=== PATIENT | female | born 2005 | race Caucasian/White ===

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

== ENCOUNTER 2025-01-28 07:57 | Day surgery (SDC) | payer OTHER, SELFPAY ==
[2025-01-28] VITALS (8 sets, daily range): BP systolic 86–111; BP diastolic 50–77; PULSE 66–85; RESP 14–16; TEMP 35.9–36.8; O2SAT 93–99; BMI 26.2
--- NOTE | 2025-01-28 08:28 | PRE.ANES_ITS ---
ASA Classification* ASA Classification ASA Classification: 2 Assessment & Plan Anesthesia* Anesthesia Assessment Anesthesia Assessment: Discussed sedation and/or anesthesia options, risks, benefits, and alternatives with patient/parents/legal guardian/POA. Questions invited. The patient/parents/legal guardian/POA seems to understand and agrees to proceed with anesthesia plan. Reviewed the physical assessment, medical history, allergy history and patient home medications list prior to surgery/procedure/anesthetic and documented any changes. Performed airway and anesthesia risk assessments. Anesthesia Type Anesthesia Type: MAC Anesthesia Focused Assessment* Airway Assessment Mouth opens: >3 cm Mallampati Score: II Labs Anesthesia Preop lab: CBC WBC 6.8 K/mm3 (4.5-13.0) 07/04/22 20:12 07/04/22 RBC 4.27 M/mm3 (4.1-4.8) 07/04/22 20:12 07/04/22 Hgb 12.6 g/dL (12.0-15.0) 07/04/22 20:12 07/04/22 Hct 38.2 % (37-46) 07/04/22 20:12 07/04/22 Plt Count 249 K/mm3 (150-450) 07/04/22 20:12 07/04/22 CHEMISTRY Potassium 4.2 mmol/L (3.5-5.1) 07/04/22 20:12 07/04/22 Sodium 139 mmol/L (136-145) 07/04/22 20:12 07/04/22 BUN 8 mg/dL (7-18) 07/04/22 20:12 07/04/22 Creatinine 0.68 mg/dL (0.55-1.02) 07/04/22 20:12 07/04/22 Glucose 94 mg/dL (74-106) 07/04/22 20:12 07/04/22 COAG Urine Test Negative Negative 09/11/17 00:20 09/11/17 Pre-Assessment Diagnosis/Proposed Procedure Planned Operative Procedure(s): Cysto, possible bladder biopsy with fulguration Anesthesia History 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 When Was Last Pacemaker Check QUESTION #4 FULL TEXT: You/Your Family Experience fever (hyperthermia) with Anesthesia Last Oral Intake Last Oral intake: Last Oral Intake NPO since Meds taken in AM with sips of water? Meds patient instructed to take am of surgery PONV PONV - lace machine operator: PONV - lace machine operator Female Yes 01/14/25 14:54 HX of Motion Sickness No 01/14/25 14:54 HX of N/V After Surgery No 01/14/25 14:54 Non-Smoker No 01/14/25 14:54 Duration of Surgery greater No 01/14/25 14:54 than 60 minutes Number of Risk Factors 1 01/14/25 14:54 PONV Score Low Risk 01/14/25 14:54 Height & Weight Height & Weight: Anesthesia: Height & Weight Height 5 ft 2 in 07/04/22 19:06 Respiratory Assessment Respiratory Assessment - lace machine operator: Respiratory Tract Infection Hx - lace machine operator Hx Respiratory Tract Infection No 01/14/25 14:54 STOP Sleep Apnea STOP Sleep Apnea - lace machine operator: STOP Sleep Apnea - lace machine operator Hx Hypertension No 01/14/25 14:54 Hx Sleep Apnea No 01/14/25 14:54 CPAP BIPAP Do you snore loudly (louder No 01/14/25 14:54 than talking or can be heard Do you often feel tired/ No 01/14/25 14:54 fatigued/ sleepy during daytime? Has anyone observed you stop No 01/14/25 14:54 breathing during sleep? STOP Results Negative 01/14/25 14:54 QUESTION #5 FULL TEXT : Do you snore loudly (louder than talking or can be heard through closed doors)? 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 Specify any problems Hx of Preganancy in last 3 No 01/14/25 14:54 Months Nurse Filling Out Transfusion JZOLLINGE 01/14/25 14:54 & Questions: Date: 01/14/25 01/14/25 14:54 Time: 14:56 01/14/25 14:54 Patient unable to answer at this time (ie. confused, unrespo /Reproduction History /Reproductive History - lace machine operator: /Reproductive Hx- lace machine operator Hx Now No 01/14/25 14:54 Gestational Age (in weeks): EDC: Hx Hx Para Hx Section SAB No 01/14/25 14:54 Active Medications Active Medications: Current Medications Generic Name Dose Route Start Last Admin Trade Name Freq PRN Reason Stop Dose Admin Lactated Ringer's 1,000 mls @ 15 mls/hr 01/28/25 08:15 IV .Q48H MORRIS PFSH Medical History Wears contact lenses Wears glasses Depression Bladder disease Hx of hepatic failure Former smoker Asthma Home Medications ?Medication ?Instructions ?Recorded ?Last Taken ?Type albuterol sulfate 90 mcg/actuation 1 - 2 puff inhalati on Q6H PRN PRN 06/21/13 Unknown History aerosol inhaler (ProAir HFA) Shortness Of Breath norgestimate 0.25 mg-ethinyl 1 tab PO DAILY 01/14/25 U nknown History estradiol 0.035 mg tablet (Hien) Allergy/AdvReac Type Severity Reaction Status Date / Time dicyclomine Allergy hallucinati Verified 01/14/25 14:45 ons Social History Smoking Status: Current every day smoker tobacco type: e-cigarettes Review of Systems (Anesthesia) ROS Narrative System reviewed and no additional complaints, except as documented.
--- NOTE | 2025-01-28 08:44 | OP.PCM_ITS ---
Operative Report (Standard) Operative Information Date of Procedure: 01/28/25 Pre-Operative Diagnosis: Urinary tract infections Post-Operative Diagnosis: Same, left ureteral duplication Surgery/Procedure Performed: Cystoscopy and pelvic exam code enforcement officer: No Type of Anesthesia: MAC RN Documented Start/Stop Times: Operation Date: 01/28/25 09:25 Case Time Into Pre-Op 01/28/25 08:05 Out of Pre-Op 01/28/25 09:33 Anesthesia Start 01/28/25 09:38 Into Room 01/28/25 09:38 Procedure Start 01/28/25 09:47 Procedure End 01/28/25 09:52 Anesthesia End 01/28/25 09:55 Into Recovery 01/28/25 09:55 Out of Room 01/28/25 09:55 Out of Recovery 01/28/25 10:20 Into Phase II Recovery 01/28/25 10:21 Procedure Start Time: 09:47 Procedure Stop Time: 09:52 Select all DRAINS/GRAFTS/IMPLANTS that apply: None Estimated Blood Loss: <5cc Specimen collected: No Description of surgery: The patient is a 19-year-old female with multiple urinary tract infections who presents for evaluation under anesthesia with cystoscopy. Informed consent was obtained. She was taken to the operating room and placed on the operating room table. Anesthesia monitored the head, neck, airway, IV access and vital signs throughout the case. Once anesthesia was appropriate ministered, she was placed into dorsolithotomy position was prepped and draped in usual sterile fashion. The cystoscope was inserted through the urethra under direct visualization into the urinary bladder. The bladder mucosa revealed no evidence of mass, erythema, ulceration or foreign body. Of note there were 2 separate ureteral orifices with ureteral jets observed on the left side and only 1 on the right. This time the urinary bladder was emptied and the cystoscope was removed. The pelvic examination revealed no evidence of abnormality. She was awakened and taken to the recovery room in good condition. Surgical Findings: Left ureteral duplication Complications Complications: No Admit VTE Documentation VTE Present on Admission: Yes VTE Mechan Device Prophylaxis: SCD's VTE Pharm Prophylaxis ordered?: No Reason prophylaxis not ordered: Treatment Not Indicated
[2025-01-28] MEDS: Lactated Ringers 1,000 ML 15 ML IV (08:45)
[2025-01-28 08:50] LABS: Internal QC Validated? YES +Cl - CLEAR BKGD; Pregnancy, Urine Negative Negative
[2025-01-28 08:53] LABS: Hematocrit 39.5 % (37-47); Hemoglobin 13.7 g/dL (12.0-15.0); Mean Corp Hgb Conc 34.7 g/dL (32-36); Mean Corpuscular Hgb 30.5 pg (27.0-32.0); Mean Platelet Vol. 9.2 fl (6.2-12.0); Platelet Count 301 K/mm3 (150-450); RBC Distribution Width CV 12.2 % (11.6-14.6); RBC Distribution Width SD 39.5 fl (35.1-43.9); Red Blood Count 4.49 M/mm3 (4.2-5.4); White Blood Count 6.1 K/mm3 (4.4-11.0)
[2025-01-28 09:11] LABS: Anion Gap 10 (5-15); BUN 14 mg/dL (4-19); BUN/Creat Ratio 18.8 RATIO (10-20); Carbon Dioxide 23.9 mmol/L (21.0-32.0); Chloride 104 mmol/L (98-108); Creatinine, Serum 0.76 mg/dL (0.70-1.20); EST Glomerular Filtration Rate 115 (>60); Estimated Creatinine Clearance 104.42 ml/min (50-250); Glucose 83 mg/dL (70-99); Sodium Level 137 mmol/L (133-145)
--- NOTE | 2025-01-28 09:52 | PCM.POST.ANE ---
Anesthesia: Postop Eval I Current Vital Signs Temperature: 97 F Pulse Rate: 67 Blood Pressure: 88/50 Respiratory Rate: 16 Pulse Ox: 98 Oxygen Delivery Method: Room Air Assessment Airway patent: Yes Spontaneous unlabored respirations: Yes Mental status: Awake and Calm nausea: No Vomiting: No Anesthesia Complication: No Fluid Hydration Crystalloid volume administer (ml): 500 Total IV fluid infused: 500 Progress Note Anesthesia document: Postop Eval 1 completed: No
[2025-01-28] MEDS: Lidocaine Jelly 2% 20 ML Syringe (URO-JET) OPERA.SITE (09:53)
--- NOTE | 2025-01-28 10:01 | POSTOPAN2_ITS ---
Anesthesia Postop Eval I Sum Postop Eval Completion status Anesthesia document: Postop Eval 1 completed: No Anesthesia Postop Eval I Summary Anesthesia Postop Eval I Summary: Anesthesia Postop Eval I: Assessment Summary Airway patent Yes 01/28/25 09:53 HUB INVENTORY SPECIALIST.MDOT Spontaneous unlabored Yes 01/28/25 09:53 HUB INVENTORY SPECIALIST.MDOT respirations Mental status Awake,Calm 01/28/25 09:53 HUB INVENTORY SPECIALIST.MDOT nausea No 01/28/25 09:53 HUB INVENTORY SPECIALIST.MDOT Vomiting No 01/28/25 09:53 HUB INVENTORY SPECIALIST.MDOT Anesthesia Postop Eval I: Fluid Summary Crystalloid volume administer 500 01/28/25 09:53 HUB INVENTORY SPECIALIST.MDOT (ml) Colloids volume administered ( ml) Blood Product volume administered (ml) Total IV fluid infused 500 01/28/25 09:53 HUB INVENTORY SPECIALIST.MDOT Anesthesia Postop Eval I: Summary Notes Anesthesia Complication No 01/28/25 09:53 HUB INVENTORY SPECIALIST.MDOT Anesthesia Complication Comment: Post-operative progress note Anesthesia: Postop Eval II Evaluation Mental status: Awake and Calm Pain Level: 0 nausea: No Vomiting: No Complications Anesthesia Complication: No
--- NOTE | 2025-01-28 10:01 | PCM.POSTANE2 ---
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 MANAGER.MDOT Spontaneous unlabored Yes 01/28/25 09:53 WINTER SPORTS MANAGER.MDOT respirations Mental status Awake,Calm 01/28/25 09:53 WINTER SPORTS MANAGER.MDOT nausea No 01/28/25 09:53 WINTER SPORTS MANAGER.MDOT Vomiting No 01/28/25 09:53 WINTER SPORTS MANAGER.MDOT Anesthesia Postop Eval I: Fluid Summary Crystalloid volume administer 500 01/28/25 09:53 WINTER SPORTS MANAGER.MDOT (ml) Colloids volume administered ( ml) Blood Product volume administered (ml) Total IV fluid infused 500 01/28/25 09:53 WINTER SPORTS MANAGER.MDOT Anesthesia Postop Eval I: Summary Notes Anesthesia Complication No 01/28/25 09:53 WINTER SPORTS MANAGER.MDOT Anesthesia Complication Comment: Post-operative progress note Anesthesia: Postop Eval II Evaluation Mental status: Awake and Calm Pain Level: 0 nausea: No Vomiting: No Complications Anesthesia Complication: No
--- NOTE | 2025-01-28 10:21 | DCINST_ITS ---
Discharge Instructions Diet Discharge Diet: No restrictions Activity Discharge Activity: Return to Normal Activity Dressing / Incision Call your doctor if you observe: Fever of 101 or Higher, Inability to urinate and Inability to have a bowel movement Follow Up Care Please Follow Up With: Barbara White MD When: The office will call for follow-up appointment in 1 to 2 weeks. Test Results: Test results from this visit will be discussed in further detail at your follow- up appointment, if applicable. Discharge Plan Admission Attending Provider: Barbara White Primary Care Provider: Alanis Rodríguez Instructions Print Language: Slovenian Discharge Orders/Prescriptions Prescriptions: Continued albuterol sulfate [ProAir HFA] 1 PUFF inhaler 1 - 2 puff inhalation Q6H PRN PRN (Reason: Shortness Of Breath) norgestimate-ethinyl estradiol [Hien] 0.25-0.035 mg tablet 1 tab PO DAILY Referrals / Follow Up: Alanis Rodríguez, MACHINE [facility] [Primary Care Provider] - Disposition Disposition (needs filled in before D/C Order can be placed): Home, Self Care
== END 2025-01-28 10:57 | disposition home or self-care (01) ==
LOC: SDC 08:00 → AC 08:01
PROVIDERS: PCP Nurse Practitioner Family; Referring Provider Urology; Visit Provider Urology
PROC: 0TBB8ZX Excision of Bladder, Via Natural or Artificial Opening Endoscopic, Diagnostic (ICD-10-PCS; CPT 52000; principal; 2025-01-28 09:15)
DX: Q62.5 Duplication of ureter (principal); N39.0 Urinary tract infection, site not specified; Z87.440 Personal history of urinary (tract) infections; J45.909 Unspecified asthma, uncomplicated; R35.0 Frequency of micturition; N39.46 Mixed incontinence; F17.200 Nicotine dependence, unspecified, uncomplicated
CPT/HCPCS: 52000; 00910; 80048; 81025; 85027; J2405